=== PATIENT | female | born 1945 | race Caucasian/White ===

== ENCOUNTER → 2016-04-04 | Outpatient (CLI) | payer OTHER, MEDICARE ==
--- NOTE | 2016-04-04 16:10 | DX ---
Chest, PA and Lateral History: J32.9, J18.0, R09.89, chronic sinusitis, chronic cough Comparison: March 24, 2014 and July 22, 2012 Findings: Lungs are clear, without infiltrate or consolidation. Heart size is normal. There is no gene nopathy or mass lesion. There is no pleural effusion . Bones are unremarkable for age. There are a fe w stable small calcified benign granulomas.. Impression: Stable since 2012. No evidence for pneumonia.
== END ==
LOC: FIMAGING 14:12
PROVIDERS: ATTEND Family Medicine
DX: R05 Cough (principal); R09.89 Other specified symptoms and signs involving the circulatory and respiratory systems; J32.9 Chronic sinusitis, unspecified

== ENCOUNTER → 2017-02-06 | Outpatient (CLI) | payer OTHER, MEDICARE | LOC: FIMAGING 12:28 | PROVIDERS: ATTEND Obstetrics & Gynecology | DX: Z12.31 Encounter for screening mammogram for malignant neoplasm of breast (principal) | CPT/HCPCS: G0202 ==

== ENCOUNTER → 2018-02-09 | Outpatient (CLI) | payer OTHER, MEDICARE | LOC: FIMAGING 14:25 | PROVIDERS: ATTEND Family Medicine | DX: Z12.31 Encounter for screening mammogram for malignant neoplasm of breast (principal) ==

== ENCOUNTER → 2018-04-17 | Outpatient (CLI) | payer OTHER, MEDICARE | LOC: FIMAGING 10:57 | PROVIDERS: ATTEND Physician Assistant | DX: Z13.820 Encounter for screening for osteoporosis (principal); M85.89 Other specified disorders of bone density and structure, multiple sites; Z78.0 Asymptomatic menopausal state ==